=== PATIENT | male | born 1995 | race African-American/Black ===

== ENCOUNTER 2022-10-12 09:22 | Emergency (ER) | payer OTHER ==
[~2022-10-12] VITALS: Ht 185.4 cm; Wt 65.8 kg
[2022-10-12 09:27] VITALS: BP 103/71
[2022-10-12 10:36] LABS: APPEARANCE,URINE CLEAR (CLEAR); BILIRUBIN,URINE NEGATIVE (NEGATIVE); COLOR,URINE YELLOW (YELLOW); NITRITE, URINE NEGATIVE (NEGATIVE); UGLUCOSE NEGATIVE (NEGATIVE)
[2022-10-12 11:02] LABS: BLOOD, URINE NEGATIVE (NEGATIVE); LEUKOCYTE ESTERASE ,URINE NEGATIVE (NEGATIVE)
[2022-10-12] MEDS ORDERED: DOXY-690 PO (11:59)
--- NOTE | 2022-10-12 12:15 | NUR ---
The patient's care was reviewed and supervised by [place] 05 RICH, RN.
--- NOTE | 2022-10-12 12:15 | NUR ---
Patient discharged with v/s stable. Written and verbal after care instructions FOR URETHRITIS given and explained. Patient alert, oriented and verbalized understanding of instructions. Ambulatory with steady gait. All questions addressed prior to discharge. ID band removed. Patient advised to follow up with PMD. Rx of VIBRAMYCIN given. Opportunity to ask questions provided and answered.
[2022-10-12 12:33] LABS: RBC,URINE 0-5 /HPF (0-5); WBC,URINE 0-5 /HPF (0-5)
== END 2022-10-12 12:15 | disposition home or self-care (01) ==
LOC: MED 09:22
DX: N34.2 Other urethritis (principal); Z79.899 Other long term (current) drug therapy
CPT/HCPCS: 81001; 81003; 87086; 87491; 99283